=== PATIENT | female | born 1970 | race Caucasian/White ===

== ENCOUNTER 2018-02-13 00:55 | Emergency (ER) | payer OTHER, SELFPAY ==
[2018-02-13 00:56] VITALS: BP 112/70; PULSE 82; RESP 12; TEMP 36.7; O2SAT 100; BMI 24.5
--- NOTE | 2018-02-13 01:15 | EKG12_ITS ---
Test Reason : REPEAT EKG Blood Pressure : / mmHG Vent. Rate : 072 BPM Atrial Rate : 072 BPM P-R Int : 144 ms QRS Dur : 084 ms QT Int : 418 ms P-R-T Axes : 063 044 033 degrees QTc Int : 457 ms Normal sinus rhythm Normal ECG Confirmed by TOMY RODARTE, TOMY ([id number]), newspaper or periodical editor ZACH OCHOA ([id number]) on 02/14/2018 2:50:50 PM Referred By: DR CHAVIRA Confirmed By:TOMY HUITRON MD
--- NOTE | 2018-02-13 01:15 | RAD_ITS ---
STUDY: X-RAY CHEST REASON FOR EXAM: Female, 47 years old. Chest heaviness TECHNIQUE: PA and lateral views of the chest. COMPARISON: 10/30/2015 FINDINGS: The lungs are clear and expanded. There is no demonstrated pleural abnormality. Normal size heart. Normal mediastinum and dwain. Normal visualized pulmonary arteries. Normal visualized aortic arch and descending thoracic aorta. Normal visualized thoracic spine. Normal visualized ribs, clavicles, and shoulders. There is no demonstrated abnormality of the visualized soft tissue structures of the upper abdomen. RAD/Chest PA and Lateral IMPRESSION: Normal x-ray examination of the chest. Electronically Signed: Viktor Matias MD at 2:30 EDT Tel , Service support ,
[2018-02-13 01:24] VITALS: O2SAT 100
[2018-02-13] MEDS: Aspirin 81 MG TAB.CHEW 324 MG PO (01:24)
[2018-02-13 01:55] LABS: Absolute Lymphocyte Count 2.78 X10^3/ul (0.83-4.51); Absolute Neutrophil Count 6.1 X10^3/uL (2.0-7.7); Basophil# 0.02 X10^3/uL; Basophil% 0.2 % (0-1); Hematocrit 40.5 % (37-47); Hemoglobin 13.1 g/dl (12.0-15.0); Lymphocyte # 2.78 X10^3/ul (4.0); Lymphocyte % 27.6 % (19-41); Mean Corp Hgb Conc 32.3 g/gl (32-36); Mean Corpuscular Hgb 28.7 pg (27.0-32.0); Mean Corpuscular Volume 88.6 fL (81-99); Mean Platelet Vol. 9.2 fl (6.2-12.0); Monocyte# 0.97 X10^3/uL; Monocyte% 9.6 % (0-10); Neutrophil # 6.11 X10^3/uL (2.7-7.7); Neutrophil % 60.5 % (47-70); Platelet Count 245 K/mm3 (150-450); RBC Distribution Width CV 12.5 % (11.6-14.6); RBC Distribution Width SD 39.9 fl (35.1-43.9); Red Blood Count 4.57 M/mm3 (4.2-5.4); White Blood Count 10.1 K/mm3 (4.4-11.0)
--- NOTE | 2018-02-13 01:58 | ED.VISSUMM ---
- ER Visit Summary Date of Service: 02/13/18 Chief Complaint: Chest heaviness History of Present Illness: The patient is a 47 F who presents for chest heaviness for 3 hours. Onset was at rest. Patient had been jogging on the treadmill 5 hours prior to presentation, and stated she was unable to run as fast or as long as she normally does. Afterwards while at rest, she began having chest heaviness and shortness of breath. It is in the substernal and left chest region radiating into the neck and back. She is also had mild cough and belching. Pain is worse if supine or deep breath. She is also recently having lower abdominal pain. She has history of a leaky valve and mitral valve prolapse. Sibling and parents have heart disease, with the sibling having hole in his heart. Patient received a stress test that was normal and an echo last year that did not show any septal defect. No history of PE or DVT, cancer, smoking or oral contraceptive use. Patient is status post hysterectomy. She did recently have a car trip to the [facility]. No recent surgeries. Physical Examination: Vital signs: afebrile, hemodynamically stable, no hypoxia on room air General: well nourished, well developed, in no distress Skin: warm, dry, no rash, no pallor HEENT: normocephalic and atraumatic; PERRL, EOMI, moist mucous membranes Cardiovascular: regular rate and rhythm without murmurs, no peripheral edema, 2+ pulses all distal extremities Respiratory: No increased work of breathing, lungs are clear to auscultation bilaterally, no rales, rhonchi or wheezing Abdominal: Abdomen is soft, nontender with normoactive bowel sounds, no guarding or rebound, no masses MSK: Moves all extremities, no deformities, normal strength, tender spot on the plantar surface of the left foot (evaluated with US at [facility] today) Neuro: Awake and alert, oriented ?4. No facial droop, sensation and motor function intact and symmetric Test Results: Abnormal Lab Results 02/13/18 02/13/18 02/13/18 01:20 01:20 01:20 WBC 10.1 RBC 4.57 Hgb 13.1 Hct 40.5 MCV 88.6 MCH 28.7 MCHC 32.3 RDW 12.5 RDW Differential 39.9 Plt Count 245 MPV 9.2 Immature Gran % (Auto) 0.100 Neut % (Auto) 60.5 Lymph % (Auto) 27.6 Cassia % (Auto) 9.6 Eos % (Auto) 2.0 Baso % (Auto) 0.2 Absolute Neuts (auto) 6.1 Absolute Lymphs (auto) 2.78 Total Counted Not Reportable PT Cancelled INR Cancelled APTT Cancelled D-Dimer Quant (PE/DVT) Sodium 138 Potassium 3.4 L Chloride 105 Carbon Dioxide 27.0 Anion Gap 6 BUN 19 H Creatinine 0.84 Estim Creat Clear Calc 72.90 Est GFR (MDRD) Af Amer 92 Est GFR (MDRD) Non-Af 76 BUN/Creatinine Ratio 22.6 H Glucose 90 Calcium 9.3 Troponin I < 0.015 02/13/18 02/13/18 02/13/18 02:05 02:05 04:18 WBC RBC Hgb Hct MCV MCH MCHC RDW RDW Differential Plt Count MPV Immature Gran % (Auto) Neut % (Auto) Lymph % (Auto) Cassia % (Auto) Eos % (Auto) Baso % (Auto) Absolute Neuts (auto) Absolute Lymphs (auto) Total Counted PT 14.3 INR 1.1 APTT 28.1 D-Dimer Quant (PE/DVT) < 0.27 L Sodium Potassium Chloride Carbon Dioxide Anion Gap BUN Creatinine Estim Creat Clear Calc Est GFR (MDRD) Af Amer Est GFR (MDRD) Non-Af BUN/Creatinine Ratio Glucose Calcium Troponin I < 0.015 Clinical Impression(s) from Imaging Studies Chest X-Ray 02/13/18 01:15 IMPRESSION: Normal x-ray examination of the chest. Electronically Signed: Viktor Matias MD at 2:30 EDT Tel , Service support , Emergency Department Course and Treatment: Patient presents with chest heaviness and shortness of breath for 3 hours to presentation. She has no personal risk factors, however does have family history of acute coronary syndrome at age less than 55. Patient was given aspirin. She was given 1 nitro, but had a severe headache with no improvement in her pain and thus did not want any more. EKG showed a sinus rhythm without any ischemic changes. Initial troponin negative. Given a pleuritic component to patient's chest pain and her recent car ride from [place], d-dimer was checked to evaluate for any possibility of PE. It was negative. Labs were remarkable for mild dehydration. She received 1 L of fluids for IV hydration. No leukocytosis or anemia. Patient was given a dose of morphine for continued chest discomfort. She had improvement but again continued to have some chest pain. She was then given a GI cocktail. After this her pain had basically resolved, but was only present with a deep breath. Patient has a heart score of 3, which puts her at low risk of 30 day MACE. She was amenable to a 3 hour repeat EKG and troponin. At 3 hours EKG still was normal sinus rhythm without ischemic changes, unchanged from the initial one. Troponin was negative. Patient was only having chest pain with deep breath, and did not wish any further workup or pain medication. She will use her anti-inflammatories at home as needed for further pain. She stated she will call her primary care doctor today to arrange a follow-up appointment. Return precautions given. Patient was discharged home in improved condition. Treatment Plan: [] Disposition: [] Impression: Acute chest pain This note was generated with [employer]if[employer] dictation software. It may contain incorrect words, spelling, and punctuation that were not noted in review of the chart prior to signing ED Disposition - Plan for ED Patient: Chief Complaint: Chest Pain Referrals: Yaakov Tao DO [Primary Care Provider] -
[2018-02-13 02:00] LABS: POSITIVE COUNT NO; POSITIVE DIFFERENTIAL NO; POSITIVE MORPHOLOGY NO
--- NOTE | 2018-02-13 02:01 | ED.DCSUM_ITS ---
- ER Visit Summary Date of Service: 02/13/18 Chief Complaint: Chest heaviness History of Present Illness: The patient is a 47 F who presents for chest heaviness for 3 hours. Onset was at rest. Patient had been jogging on the treadmill 5 hours prior to presentation, and stated she was unable to run as fast or as long as she normally does. Afterwards while at rest, she began having chest heaviness and shortness of breath. It is in the substernal and left chest region radiating into the neck and back. She is also had mild cough and belching. Pain is worse if supine or deep breath. She is also recently having lower abdominal pain. She has history of a leaky valve and mitral valve prolapse. Sibling and parents have heart disease, with the sibling having hole in his heart. Patient received a stress test that was normal and an echo last year that did not show any septal defect. No history of PE or DVT , cancer, smoking or oral contraceptive use. Patient is status post hysterectomy. She did recently have a car trip to the [facility]. No recent surgeries. Physical Examination: Vital signs: afebrile, hemodynamically stable, no hypoxia on room air General: well nourished, well developed, in no distress Skin: warm, dry, no rash, no pallor HEENT: normocephalic and atraumatic; PERRL, EOMI, moist mucous membranes Cardiovascular: regular rate and rhythm without murmurs, no peripheral edema, 2 + pulses all distal extremities Respiratory: No increased work of breathing, lungs are clear to auscultation bilaterally, no rales, rhonchi or wheezing Abdominal: Abdomen is soft, nontender with normoactive bowel sounds, no guarding or rebound, no masses MSK: Moves all extremities, no deformities, normal strength, tender spot on the plantar surface of the left foot (evaluated with US at [facility] today) Neuro: Awake and alert, oriented ?4. No facial droop, sensation and motor function intact and symmetric Test Results: Abnormal Lab Results 02/13/18 02/13/18 02/13/18 01:20 01:20 01:20 WBC 10.1 RBC 4.57 Hgb 13.1 Hct 40.5 MCV 88.6 MCH 28.7 MCHC 32.3 RDW 12.5 RDW Differential 39.9 Plt Count 245 MPV 9.2 Immature Gran % (Auto) 0.100 Neut % (Auto) 60.5 Lymph % (Auto) 27.6 Rabun % (Auto) 9.6 Eos % (Auto) 2.0 Baso % (Auto) 0.2 Absolute Neuts (auto) 6.1 Absolute Lymphs (auto) 2.78 Total Counted Not Reportable PT Cancelled INR Cancelled APTT Cancelled D-Dimer Quant (PE/DVT) Sodium 138 Potassium 3.4 L Chloride 105 Carbon Dioxide 27.0 Anion Gap 6 BUN 19 H Creatinine 0.84 Estim Creat Clear Calc 72.90 Est GFR (MDRD) Af Amer 92 Est GFR (MDRD) Non-Af 76 BUN/Creatinine Ratio 22.6 H Glucose 90 Calcium 9.3 Troponin I < 0.015 02/13/18 02/13/18 02/13/18 02:05 02:05 04:18 WBC RBC Hgb Hct MCV MCH MCHC RDW RDW Differential Plt Count MPV Immature Gran % (Auto) Neut % (Auto) Lymph % (Auto) Rabun % (Auto) Eos % (Auto) Baso % (Auto) Absolute Neuts (auto) Absolute Lymphs (auto) Total Counted PT 14.3 INR 1.1 APTT 28.1 D-Dimer Quant (PE/DVT) < 0.27 L Sodium Potassium Chloride Carbon Dioxide Anion Gap BUN Creatinine Estim Creat Clear Calc Est GFR (MDRD) Af Amer Est GFR (MDRD) Non-Af BUN/Creatinine Ratio Glucose Calcium Troponin I < 0.015 Clinical Impression(s) from Imaging Studies Chest X-Ray 02/13/18 01:15 IMPRESSION: Normal x-ray examination of the chest. Electronically Signed: Viktor Matias MD at 2:30 EDT Tel , Service support , Emergency Department Course and Treatment: Patient presents with chest heaviness and shortness of breath for 3 hours to presentation. She has no personal risk factors, however does have family history of acute coronary syndrome at age less than 55. Patient was given aspirin. She was given 1 nitro , but had a severe headache with no improvement in her pain and thus did not want any more. EKG showed a sinus rhythm without any ischemic changes. Initial troponin negative. Given a pleuritic component to patient's chest pain and her recent car ride from [place], d-dimer was checked to evaluate for any possibility of PE. It was negative. Labs were remarkable for mild dehydration. She received 1 L of fluids for IV hydration. No leukocytosis or anemia. Patient was given a dose of morphine for continued chest discomfort. She had improvement but again continued to have some chest pain. She was then given a GI cocktail. After this her pain had basically resolved, but was only present with a deep breath. Patient has a heart score of 3, which puts her at low risk of 30 day MACE. She was amenable to a 3 hour repeat EKG and troponin. At 3 hours EKG still was normal sinus rhythm without ischemic changes, unchanged from the initial one. Troponin was negative. Patient was only having chest pain with deep breath, and did not wish any further workup or pain medication. She will use her anti-inflammatories at home as needed for further pain. She stated she will call her primary care doctor today to arrange a follow-up appointment. Return precautions given. Patient was discharged home in improved condition. Treatment Plan: [] Disposition: [] Impression: Acute chest pain This note was generated with Urbasolar dictation software. It may contain incorrect words, spelling, and punctuation that were not noted in review of the chart prior to signing ED Disposition - Plan for ED Patient: Chief Complaint: Chest Pain Referrals: Yaakov Tao DO [Primary Care Provider] -
[2018-02-13 02:02] LABS: Anion Gap 6 (5-15); BUN 19 mg/dL (7-18); BUN/Creat Ratio 22.6 RATIO (10-20); Calcium,Total 9.3 mg/dL (8.5-10.1); Chloride 105 mmol/L (98-107); Creatinine, Serum 0.84 mg/dL (0.55-1.02); EST Glomerular Filtration Rate 76 mL/min (>60); Est Glom Filt Rate - Afr Amer 92 mL/min (>60); Glucose 90 mg/dL (74-106); Potassium 3.4 mmol/L (3.5-5.1); Sodium Level 138 mmol/L (136-145)
[2018-02-13 02:15] LABS: International Normalized Ratio 1.1; Partial Thromboplast Time 28.1 Seconds (24.1-36.2); Prothrombin Time (Protime)PT. 14.3 SECONDS (11.7-14.9)
[2018-02-13 02:21] VITALS: BP 110/64; PULSE 81; RESP 18; O2SAT 99
[2018-02-13] MEDS: 0.9% Normal Saline 1,000 ML 999 ML IV (02:27)
[2018-02-13 02:35] VITALS: BP 116/72; PULSE 73
[2018-02-13] MEDS: Morphine 4 MG/ML Syringe IV (03:05)
[2018-02-13 03:17] LABS: D-Dimer Quantitative (DVT/PE) < 0.27 FEU/ug/m (0.27-0.49)
--- NOTE | 2018-02-13 04:00 | EKG12_ITS ---
Test Reason : CP Blood Pressure : / mmHG Vent. Rate : 075 BPM Atrial Rate : 075 BPM P-R Int : 138 ms QRS Dur : 086 ms QT Int : 398 ms P-R-T Axes : 055 057 049 degrees QTc Int : 444 ms Normal sinus rhythm Normal ECG Confirmed by TOMY RODARTE, TOMY ([id number]), publication editor ZACH OCHOA ([id number]) on 02/14/2018 2:51:08 PM Referred By: DR CHAVIRA Confirmed By:TOMY HUITRON MD
[2018-02-13 04:01] VITALS: BP 108/75; PULSE 76; RESP 15; O2SAT 100
--- NOTE | 2018-02-13 04:58 | ED.DEP ---
ED Disposition - Plan for ED Patient: Disposition: Home or Assisted Living Chief Complaint: Chest Pain Instructions: ED Chest Pain Atypical Unkn Cause Referrals: Yaakov Tao DO [Primary Care Provider] - As soon as possible Additional Instructions: If you have any worsening of your condition or any new concerning symptoms, please return immediately to the emergency department for another evaluation.
[2018-02-13 05:08] VITALS: PULSE 87; RESP 16; O2SAT 97; O2SAT 98
== END 2018-02-13 05:09 | disposition home or self-care (01) ==
PROVIDERS: Emergency Provider Emergency Medicine; Family Provider Student in an Organized Health Care Education/Training Program; PCP Student in an Organized Health Care Education/Training Program
DX: R07.9 Chest pain, unspecified (principal); I34.1 Nonrheumatic mitral (valve) prolapse; I38 Endocarditis, valve unspecified; Z79.82 Long term (current) use of aspirin; Z79.899 Other long term (current) drug therapy; Z82.49 Family history of ischemic heart disease and other diseases of the circulatory system
CPT/HCPCS: 36415; 71046; 80048; 84484; 85025; 85379; 85610; 85730; 93005; 96361; 96374; 99285; J7030; A4216

== ENCOUNTER → 2022-09-10 | Outpatient (CLI) | payer BC, SELFPAY | END | disposition home or self-care (01) | PROVIDERS: PCP Student in an Organized Health Care Education/Training Program; Referring Provider Surgery; Visit Provider Surgery | DX: R92.0 Mammographic microcalcification found on diagnostic imaging of breast (principal) | CPT/HCPCS: 19081 ==

== ENCOUNTER 2023-07-19 20:26 | Emergency (ER) | payer BC, SELFPAY ==
[2023-07-19 20:27] VITALS: BP 114/69; PULSE 88; RESP 17; TEMP 36.6; O2SAT 99; BMI 22.9
--- NOTE | 2023-07-19 20:46 | EX.ED.GENINJ ---
HPI History of Present Illness Chief Complaint: Fall Detail of Chief Complaint: Back pain and left hip pain status post fall Onset/Context/Timing Onset: Hours (Less than 1 hour prior to presentation) Mechanism/Context: Blunt Injury and Fall Location: Lower back and left hip region Current Severity: Moderate Maximum Severity: Severe Worsened by: Any attempt to move Relieved by: Nothing Associated Symptoms Associated Symptoms: Negative for Parasthesias, Weakness, Loss of function, Inability to ambulate or Loss of consciousness Narrative Narrative: Is a 53-year-old woman with stage 0 breast cancer on tamoxifen and medicine for migraine headaches who presents with low back pain and left hip pain after fall. She fell down 3 steps in the garage. They are made out of composite wood. She presents because she has significant pain. She has increased pain with weightbearing. She is able to bear weight. She denies head trauma. She denies neck pain. She denies paresthesia, anesthesia or motor weakness. She is not allergic to anything. Tetanus Immunization: 5-10 years Prior similar symptoms: No Recent Illness/Hospitalization: [facility] Medical History (Updated 07/19/23 @ 21:[address] Jeet Sandhu MD) Breast cancer Home Medications aspirin 81 mg chewable tablet 81 mg PO DAILY@0800 10/30/15 [History Last Taken Unknown] nifedipine 30 mg tablet,extended release 24 hr 30 mg PO DAILY 10/30/15 [History Last Taken Unknown] biotin 1,000 mcg chewable tablet 1,000 mcg PO DAILY 02/13/18 [History Last Taken Unknown] coenzyme Q10 200 mg capsule (Co Q-10) 400 mg PO DAILY 02/13/18 [History Last Taken Unknown] magnesium oxide 400 mg PO DAILY 02/13/18 [History Last Taken Unknown] hydrocodone-acetaminophen 5-325mg 5mg-325mg 1 tab PO Q6H PRN PRN Pain 3 days #10 TABLETS 07/19/23 [Rx Last Taken Unknown] naproxen 500 mg tablet 500 mg PO BID #14 tabs 07/19/23 [Rx Last Taken Unknown] Allergy/AdvReac Type Severity Reaction Status Date / Time No Known Allergies Allergy Verified 07/19/23 20:27 Social History (Updated 07/19/23 @ 20:[address] Jeet Sandhu MD) household members: spouse Smoking Status: Never smoker substance use type: does not use ROS ROS ED Constitutional Constitutional ED: Denies chills, fever(s), subjective, sweats or weight loss Eyes Eyes: Denies blurry vision or change in vision ENT ENT ED: Denies ear pain or rhinorrhea Cardiovascular Cardiovascular: Denies chest pain Respiratory/Chest Respiratory/Chest: Denies dyspnea or dyspnea on exertion Gastrointestinal Gastrointestinal: Denies abdominal pain, nausea or vomiting Musculoskeletal Musculoskeletal: Reports back pain; Denies arthralgias, myalgias or neck pain Integumentary Denies rash Neurologic Neurologic: Denies headache(s), paresthesias or weakness Hematologic/Lymphatic Hematologic/Lymphatic: Denies easy bleeding or easy bruising EXAM Physical Exam Const Vital Signs: 07/19/23 20:27 07/19/23 21:32 Temperature 97.8 F Temperature Source Temporal Pulse Rate 88 Respiratory Rate 17 Respiratory Effort Normal Non-Labored Short of Breath Respiratory Depth Normal Respiratory Pattern Normal Blood Pressure 114/69 Blood Pressure Mean 84 Pulse Ox 99 Oxygen Delivery Method Room Air Room Air Positive well nourished and well developed Constitutional Narrative: Patient is in obvious discomfort. She is sitting straight up on the chair. General Appearance ED: well developed; Negative for NAD HEENT atraumatic; Negative for tenderness Nose: Negative for septum abnormal Eyes PERRL and EOMs intact bilaterally Neck full ROM General: Negative for tenderness Chest Wall palpation of chest normal Resp normal respiratory effort and clear to auscultation bilaterally Cardio regular rhythm, S1 normal heart sound, S2 normal heart sound and no murmurs GI normal to inspection, nondistended, normoactive bowel sounds, non-tender, non-distended and no masses Back/Spine Negative for no thoracic nor lumbar tenderness Back/Spine Narrative: Pain palpation over the lumbar vertebrae and left paralumbar region. There is no pain the patient over the iliac wing. There is pain to palpation over the left ischial tuberosity. There is pain in the area of the left greater trochanteric process. General Back: Negative for CVA tenderness Thoracic Spine / Upper Back: Negative for thoracic spinal tenderness Extremity normal to inspection and full ROM General Extremety ED: Negative for deformity or edema General Extremity: Negative for deformity or edema Neuro oriented x3, CN's II-XII intact bilaterally, no focal motor deficits and no sensory deficits noted Neuro Narrative: EHL is intact. DP and PT pulse are palpable. Straight leg test in the sitting position is negative. Sensorium / Orientation: alert Psych mental status grossly normal and thought process normal Skin no rashes or lesions noted, no wounds, skin turgor normal and no jaundice MDM MDM MDM Narrative Medical decision making narrative: IV was established to treat patient's pain with morphine. X-ray of the LS-spine was obtained to assess for contusion versus fracture and specifically compression fracture. Because of her left hip pain 3 views were obtained to assess her pelvis as well as the left proximal femur. History & Record Review Additional record(s) reviewed:: Prior outpatient record and Prior ED visit Radiography Chest X-Ray - ED: 2 View (X-ray of the LS-spine reveals no evidence of fracture, subluxation dislocation, spondylolisthesis or spondylolithiasis. There is independently reviewed interpreted by me at [id number].) and Read by ED Physician (X-ray of the left elbow and hip were obtained. There is no evidence of fracture, subluxation or dislocation. There is no anterior posterior fat pad noted on the elbow film. This was independent reviewed interpreted by me at 2145.) Diagnostic Testing: Clinical Impression(s) from Imaging Studies Elbow X-Ray 07/19/23 21:30 IMPRESSION: Normal x-ray examination of the elbow. Electronically Signed: Abelardo Valdivia MD at 22:10 EST Reading Location [facility] and [facility] Tel , Service support , Hip/Pelvis X-Ray 07/19/23 21:30 IMPRESSION: Normal x-ray examination of the pelvis and hip. Electronically Signed: Abelardo Valdivia MD at 22:10 EST Reading Location ID and State: [facility] / [place] Tel , Service support , Lumbar Spine X-Ray 07/19/23 21:30 IMPRESSION: Transitional vertebrae as above. Mild scoliosis. Electronically Signed: Abelardo Valdivia MD at 22:09 EST Reading Location ID and State: [facility] / [place] Tel , Service support , Treatment and Re-Evaluation Narrative: Patient was informed of her x-ray results. Her pain was reassessed. States she has had little improvement with respect to pain management. Additional dose of morphine was ordered. Patient was reassessed at 2210. She was still having significant pain. 2.5 mg of Valium was ordered. Reassessed at 2255. Patient states she like to go home. She will be discharged to home. Discharge Plan Triage Chief Complaint: Fall ED Provider: Jeet Sandhu Dx/Rx/DC Orders Clinical Impression: Injury due to fall, Contusion of lower back, Contusion of left hip, initial encounter, Contusion of elbow, left Instructions: ED Contusion, Elbow, ED Back Contusion, ED Hip Contusion Prescriptions: New hydrocodone-acetaminophen [hydrocodone-acetaminophen] 5-325 mg tablet 1 tab PO Q6H PRN PRN (Reason: Pain) 3 Days Qty: 10 0RF naproxen 500 mg tablet 500 mg PO BID Qty: 14 0RF No Action nifedipine 30 MG tablet 30 mg PO DAILY aspirin 81 MG tablet,chewable 81 mg PO DAILY@0800 coenzyme Q10 [Co Q-10] 200 MG capsule 400 mg PO DAILY biotin 1,000 MCG tablet,chewable 1,000 mcg PO DAILY magnesium oxide 400 MG tablet 400 mg PO DAILY Primary Care Provider: Yaakov Tao Referrals: Yaakov Tao DO [Primary Care Provider] - Disposition Disposition: Home, Self Care
[2023-07-19] MEDS: Morphine 4 MG/ML Syringe IV ×2 (21:16→22:00)
[2023-07-19] MEDS: Ondansetron 4 MG/2 ML Vial IV (21:16)
--- NOTE | 2023-07-19 21:30 | RAD_ITS ---
STUDY: X-RAY - LEFT ELBOW REASON FOR EXAM: Female, 53 years old. fall TECHNIQUE: 3 view(s) of the elbow. COMPARISON: None. FINDINGS: Normal visualized humerus, radius and ulna. Normal radiocapitellar and ulnotrochlear articulations. The soft tissue structures are unremarkable. RAD/Elbow min 3 Views IMPRESSION: Normal x-ray examination of the elbow. Electronically Signed: Abelardo Valdivia MD at 22:10 EST ,
--- NOTE | 2023-07-19 21:30 | RAD_ITS ---
STUDY: X-RAY - LUMBAR SPINE REASON FOR EXAM: Female, 53 years old. Injury/Pain TECHNIQUE: 2 view(s) of the lumbar spine were obtained. COMPARISON: None FINDINGS: Normal lumbar lordosis. Mild levoconvex scoliosis. 4 lumbar type vertebral bodies with probable sacralization of L5. There is a normal alignment of the vertebrae. Normal vertebral bodies and endplates. Normal disc space heights. The soft tissue structures are unremarkable. RAD/Lumbar Spine 2 or 3 Views IMPRESSION: Transitional vertebrae as above. Mild scoliosis. Electronically Signed: Abelardo Valdivia MD at 22:09 EST ,
--- NOTE | 2023-07-19 21:30 | RAD_ITS ---
STUDY: X-RAY - PELVIS AND LEFT HIP REASON FOR EXAM: Female, 53 years old. Injury/Pain TECHNIQUE: 3 views of the pelvis and hip. COMPARISON: None. FINDINGS: There is a non-specific bowel gas pattern. Normal visualized soft tissue structures. Normal bilateral iliac wings, sacroiliac joints and visualized sacrum. Normal bilateral superior and inferior pubic rami. Normal pubic symphysis. Normal bilateral ischial tuberosities. Normal visualized femoral head. Normal acetabulum. Normal hip joint. RAD/HIP, UNI W/ Pelvis 2-3 Views IMPRESSION: Normal x-ray examination of the pelvis and hip. Electronically Signed: Abelardo Valdivia MD at 22:10 [facility] ,
[2023-07-19] MEDS: diazePAM 5 MG Tablet 2.5 MG PO (22:54)
[2023-07-19 23:04] VITALS: RESP 20
== END 2023-07-19 23:07 | disposition home or self-care (01) ==
PROVIDERS: Emergency Provider Emergency Medicine; PCP Student in an Organized Health Care Education/Training Program; Visit Provider Emergency Medicine
DX: S20.229A Contusion of unspecified back wall of thorax, initial encounter (principal); C50.919 Malignant neoplasm of unspecified site of unspecified female breast; S70.02XA Contusion of left hip, initial encounter; S50.02XA Contusion of left elbow, initial encounter; W10.9XXA Fall (on) (from) unspecified stairs and steps, initial encounter
CPT/HCPCS: 72100; 73080; 73502; 96374; 96375; 96376; 99282; A4216; J2405

== ENCOUNTER 2023-07-21 12:06 | Emergency (ER) | payer BC, SELFPAY ==
[2023-07-21 12:06] VITALS: BP 121/73; PULSE 73; RESP 16; TEMP 36.2; O2SAT 100; BMI 23.7
--- NOTE | 2023-07-21 13:00 | ED.VIS.BACK ---
HPI History of Present Illness Chief Complaint: Back Informant: patient Onset/Context/Timing Onset: Days Context: Sudden Onset Injury: direct trauma and fall Timing: Continuous Quality: Sharp, Burning and Throbbing Location: Lumbar and Left Leg Current Severity: Moderate Maximum Severity: Moderate Worsened by: improves with Movement, Bending and Lifting Relieved by: Remaining Still Associated Symptoms Associated Symptoms: Numbness, Tingling and Radiation to Left Leg; Negative for Fever, Abdominal Pain, Dysuria, Unable to Ambulate, Unable to Transfer, Urinary Retention, Urinary Incontinence or Fecal Incontinence Narrative Narrative: 53-year-old female fell a week or so ago. Landing on her buttocks going down steps. Since that time has had back pain and now pain radiating to her left leg with some numbness. She was seen initially had lumbar spine, pelvis and elbow x-rays all of which were negative. She was placed on oxycodone and Naprosyn for pain. Pain is not being controlled and she is concerned that she may have injured a disc in her back. She has never had any back history of prior back surgery. Prior similar symptoms: No Recent Illness/Hospitalization: No [facility] Medical History Breast cancer Home Medications aspirin 81 mg chewable tablet 81 mg PO DAILY@0800 10/30/15 [History Last Taken Unknown] nifedipine 30 mg tablet,extended release 24 hr 30 mg PO DAILY 10/30/15 [History Last Taken Unknown] biotin 1,000 mcg chewable tablet 1,000 mcg PO DAILY 02/13/18 [History Last Taken Unknown] coenzyme Q10 200 mg capsule (Co Q-10) 400 mg PO DAILY 02/13/18 [History Last Taken Unknown] magnesium oxide 400 mg PO DAILY 02/13/18 [History Last Taken Unknown] hydrocodone-acetaminophen 5-325mg 5mg-325mg 1 tab PO Q6H PRN PRN Pain 3 days #10 TABLETS 07/19/23 [Rx Last Taken Unknown] naproxen 500 mg tablet 500 mg PO BID #14 tabs 07/19/23 [Rx Last Taken Unknown] oxycodone-acetaminophen 5 mg-325 mg tablet (Percocet) 1 tab PO Q4H PRN pain 5 days #20 tabs 07/21/23 [Rx Last Taken Unknown] prednisone 20 mg tablet 40 mg (2 x 20 mg) PO DAILY 7 days #14 tabs 07/21/23 [Rx Last Taken Unknown] tamoxifen 20 mg tablet 20 mg PO DAILY 07/21/23 [History Last Taken Unknown] Allergy/AdvReac Type Severity Reaction Status Date / Time No Known Allergies Allergy Verified 07/19/23 20:27 Family History Father Heart disease Mother Emphysema lung Dementia Surgical History H/O foot surgery H/O lumpectomy H/O: hysterectomy Social History household members: spouse Smoking Status: Never smoker substance use type: does not use ROS ROS ED ROS Narrative Pain. No recent illness. Review of Systems ROS Unobtainable: Denies due to encephalopathy Constitutional Constitutional ED: Denies chills or fever(s) Eyes Eyes: Denies blurry vision Cardiovascular Cardiovascular: Denies chest pain Respiratory/Chest Respiratory/Chest: Denies dyspnea Gastrointestinal Gastrointestinal: Denies abdominal pain Genitourinary Genitourinary ED: Denies dysuria or hematuria Musculoskeletal Musculoskeletal: Denies arthralgias Integumentary Denies abscess or Abrasions Neurologic Neurologic: Denies headache(s) Psychiatric Psychiatric: Denies anxiety or depression Endocrine Endocrinology: Denies cold intolerance Hematologic/Lymphatic Hematologic/Lymphatic: Denies easy bleeding or easy bruising Allergic/Immunologic Allergic/Immunologic ED: Denies mouth swelling or tongue swelling EXAM Physical Exam Narrative Exam Narrative: 53-year-old female no acute distress. Sitting upright in bed. Vital signs stable afebrile. HEENT exam unremarkable. Neck nontender. Lungs clear to auscultation bilaterally. Heart regular rhythm no murmur. Chest wall and ribs nontender. Abdomen soft nontender. Back lower lumbar and left SI tenderness. No ecchymosis or bruising. No signs of trauma. Pelvic girdle intact. Moving all 4 extremities. Positive straight leg raise on the left negative on the right. Normal medial thigh sensation. Left lower leg decreased sensation medially subjectively. Dorsi and plantarflexion intact. Flexion extension of both hips and knees unremarkable. Neurologic exam normal strength. Decreased sensation medially. Cauda equina. Const Vital Signs: 07/21/23 12:06 Temperature 97.2 F L Temperature Source Temporal Pulse Rate 73 Respiratory Rate 16 Blood Pressure 121/73 H Blood Pressure Mean 89 Pulse Ox 100 Positive well nourished and well developed; Negative for obese, cachectic, contractures or unkempt General Appearance ED: well developed and NAD; Negative for unkempt, cachectic, contractures or pallor Nutritional Appearance: Negative for cachectic or obese HEENT Reports moist mucous membranes; Denies dry mucous membranes Negative for trauma or tenderness Mouth ED: No dry mucous membranes Mouth: No dry mucous membranes Eyes PERRL and EOMs intact bilaterally General Eye ED: Negative for pale conjunctiva or scleral icterus Neck no lymphadenopathy, supple and no JVD General: Negative for tenderness Thyroid: Negative for other Chest Wall Chest: Negative for other Resp normal respiratory effort and clear to auscultation bilaterally Effort and Inspection: Negative for pain with movement Auscultation: Negative for rales, rhonchi or wheezes Cardio regular rate, regular rhythm, S1 normal heart sound, S2 normal heart sound and no murmurs Palpation: Negative for palpable S3 Rate: Negative for bradycardia or tachycardic Rhythm: Negative for abnormal rhythm Bruits: Negative for other GI normal to inspection, nondistended, normoactive bowel sounds, soft to palpation, non-tender, non-distended and no masses Inspection: Negative for abdominal distention Auscultation: Negative for hyperactive bowel sounds Palpation: Negative for tender, guarding or hepatomegaly Bladder / Kidney Exam: No other Back/Spine normal to inspection; Negative for no thoracic nor lumbar tenderness Back/Spine Narrative: Mildly tender lumbar spine. Left SI tenderness. Positive straight leg raise on the left. General Back: Negative for CVA tenderness Cervical Spine: Negative for cervical spine tenderness Thoracic Spine / Upper Back: Negative for paraspinal muscle tenderness Lumbar Spine / Lower Back: ROM limited and straight leg raise positive - left Extremity no clubbing, cyanosis or edema; Negative for normal to inspection Extremity Narrative: Medial lower leg decreased sensation. Normal range of motion. General Extremety ED: Negative for edema or tenderness General Extremity: Negative for edema Neuro oriented x3 and No no sensory deficits noted Sensorium / Orientation: alert; Negative for confused, lethargic or stuporous Motor Exam: strength 5/5 throughout Psych mental status grossly normal Appearance: Negative for unkempt Attitude: No agitated and No other Mood & Affect: Negative for depressed Skin no rashes or lesions noted and no wounds General Skin Exam: Negative for jaundice or pallor Lesions: No lesion noted Rashes: No rashes noted Trauma: Negative for abrasion or puncture Wounds: Negative for wounds noted MDM MDM MDM Narrative Medical decision making narrative: 53-year-old recent fall negative x-rays of her lumbar spine and pelvis. She may have disc inflammation and or compression of the nerve on her left leg. Patient and her understand that I am unable to get MRI today. She will be placed on prednisone 40 mg a day for 1 week. First dose given here. Percocet for pain. Stop the Naprosyn and follow-up with primary care physician and get outpatient MRI if not improving. History & Record Review Discussion w/independent historian: Patient and Family Additional record(s) reviewed:: Prior ED visit Discharge Plan Triage Chief Complaint: Back ED Provider: Flako Rodriguez Dx/Rx/DC Orders Clinical Impression: Sciatica of left side, Fall Instructions: ED Sciatica Prescriptions: New prednisone 20 mg tablet 40 mg PO DAILY 7 Days Qty: 14 0RF oxycodone-acetaminophen [Percocet] 5-325 mg tablet 1 tab PO Q4H PRN (Reason: pain) 5 Days Qty: 20 0RF No Action nifedipine 30 MG tablet 30 mg PO DAILY aspirin 81 MG tablet,chewable 81 mg PO DAILY@0800 coenzyme Q10 [Co Q-10] 200 MG capsule 400 mg PO DAILY biotin 1,000 MCG tablet,chewable 1,000 mcg PO DAILY magnesium oxide 400 MG tablet 400 mg PO DAILY hydrocodone-acetaminophen [hydrocodone-acetaminophen] 5-325 mg tablet 1 tab PO Q6H PRN PRN (Reason: Pain) 3 Days Qty: 10 0RF naproxen 500 mg tablet 500 mg PO BID Qty: 14 0RF tamoxifen 20 mg tablet 20 mg PO DAILY Primary Care Provider: Yaakov Tao Referrals: Yaakov Tao DO [Primary Care Provider] - As soon as possible Activity Restrictions/Additional Instructions: Back pain due to fall also concerning for possible lumbar disc injury or inflammation causing compression of the nerve going down your left leg which would be giving you the numbness and the pain going down your leg. Start on prednisone 40 mg a day for 1 week. No need to taper. Stop the Naprosyn that you are already on because prednisone is already an anti-inflammatory do not take both together. Continue your other pain medication and I also wrote you for Percocet as needed take either the oxycodone or the Percocet. Not both. Follow-up with your doctor to be set up for an outpatient MRI. MRI of your lumbar spine without contrast. Disposition Disposition: Home, Self Care
[2023-07-21] MEDS: predniSONE 20 MG Tablet 40 MG PO (13:07)
[2023-07-21 13:13] VITALS: RESP 14
[2023-07-21] MEDS: Ondansetron ODT 4 MG Tablet PO (13:22)
[2023-07-21] MEDS: HYDROmorphone 1 MG/ML Syringe IM (13:23)
== END 2023-07-21 13:35 | disposition home or self-care (01) ==
PROVIDERS: Emergency Provider Emergency Medicine; PCP Student in an Organized Health Care Education/Training Program; Visit Provider Emergency Medicine
DX: M54.32 Sciatica, left side (principal); W19.XXXA Unspecified fall, initial encounter
CPT/HCPCS: 96372; 99282

== ENCOUNTER 2024-05-01 07:19 | Emergency (ER) | payer BC, SELFPAY ==
[2024-05-01] VITALS (8 sets, daily range): BP systolic 62–133; BP diastolic 44–90; PULSE 76–90; RESP 12–19; TEMP 35.9–36.7; O2SAT 98–100; BMI 22.8
--- NOTE | 2024-05-01 07:30 | CT_ITS ---
INDICATION: syncope, head trauma EXAMINATION: CT BRAIN - CT Head or Brain W/O Contrast Injection TECHNIQUE: Multiple axial images were obtained of the head without intravenous contrast. A radiation dose optimization technique was used for this scan. IV Contrast dosage and agent: None. RADIATION DOSAGE (If Supplied By Facility): CTDIvol = ( 44.99 ) mGy, DLP = ( 779.24 ) mGycm COMPARISON: No relevant prior comparison study available FINDINGS: BRAIN PARENCHYMA: No intra- or extra-axial hemorrhage. No evidence of acute infarct. No intracranial mass or mass effect. There is preservation of the gay/white matter interface. Posterior fossa structures are unremarkable. No parenchymal abnormality. CSF SPACES: No cerebral volume loss. No hydrocephalus. Basal cisterns are patent. CALVARIUM, SKULL BASE, PARANASAL SINUSES AND MASTOID AIR CELLS: Partially opacified maxillary sinuses. The mastoid air cells and visualized paranasal sinuses are otherwise well aerated. The calvarium is intact. No discrete lytic or blastic abnormalities. ORBITS: Both globes, extraocular muscles, optic nerves and retrobulbar fat appear unremarkable. CT/Brain/Head without Contrast IMPRESSION: No acute intracranial finding. Electronically Signed: Wilner Isaacs MD at 8:15 EDT ,
--- NOTE | 2024-05-01 07:30 | CT_ITS ---
INDICATION: trauma, jaw pain EXAMINATION: CT SINUSES - CT Sinuses W/O Contrast Injection TECHNIQUE: Helically acquired images were obtained of the paranasal sinuses. The protocol utilizes one or more of the following dose reduction techniques: automated exposure control, adjustment of mA and/or kV according to patient size,and/or use of iterative reconstruction technique. IV Contrast dosage and agent: None RADIATION DOSAGE (If Supplied By Facility): CTDIvol = ( 29.38 ) mGy, DLP = ( 642.95 ) mGycm COMPARISON: No relevant prior comparison study available FINDINGS: FRONTAL SINUSES AND RECESSES: Clear. ETHMOID AIR CELLS: Clear. MAXILLARY SINUSES: Mild mucoperiosteal thickening bilaterally. OSTIOMEATAL COMPLEXES: Clear and normally formed. SPHENOID SINUSES: Clear. SPHENOETHMOIDAL RECESSES: Clear. ANCILLARY FINDINGS: NASAL TURBINATES: Unremarkable. NASAL SEPTUM: Midline. ORBITS: Unremarkable. VISUALIZED DENTITION: No periodontal osseous erosion. ANTERIOR CRANIAL FOSSA: Unremarkable. OSSEOUS STRUCTURES: No maxillofacial fracture. Degenerative changes are seen at the left temporomandibular joint. CT/Sinus/Facial Bone IMPRESSION: No acute maxillofacial fracture. 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 Electronically Signed: Wilner Isaacs MD at 8:19 EDT ,
--- NOTE | 2024-05-01 07:30 | EKG12_ITS ---
Test Reason : SYNCOPE Blood Pressure : / mmHG Vent. Rate : 073 BPM Atrial Rate : 073 BPM P-R Int : 140 ms QRS Dur : 074 ms QT Int : 400 ms P-R-T Axes : 061 043 038 degrees QTc Int : 440 ms Normal sinus rhythm Normal ECG Confirmed by DAMASO ROMERO ([id number]), videotape editor TIERNEY DOSS ([id number]) on 05/05/2024 8:28:13 AM Referred By: Confirmed By:DAMASO ROMERO
--- NOTE | 2024-05-01 07:35 | EX.ED.DYSGE1 ---
HPI History of Present Illness Chief Complaint: Syncope Informant: patient Narrative Narrative: Patient is a 53-year-old female with history of migraines, lumbar radiculopathy, anxiety and breast cancer (on tamoxifen) presenting after syncopal episode. Patient states the past few days she has had a worsening headache and feels that she has a sinus infection. She has had sore throat, congestion, nonproductive cough and headaches. She went to take her dogs out this morning and felt sweaty and dizzy. She describes the dizziness as a lightheadedness sensation and denies a sensation of vertigo or room spinning. She was in the kitchen and her sons witnessed her fall forward and hit her face on the counter/stove and then fall to the ground. She was unconscious for approximately 10 seconds. She in January her lower lip (her teeth went through her lower lip), chipped some teeth, has jaw pain and is also complaining of right ankle pain and swelling from the fall. Is not on any blood thinners but does take 81 mg aspirin daily. Denies any significant history of syncope. in the room states that she does have low blood pressure normally. Patient states she has been drinking plenty fluids. Denies any chest pain or difficulty breathing. No other complaints or concerns at this time. [facility] Medical History Breast cancer Home Medications ?Medication ?Instructions ?Recorded ?Last Taken ?Type aspirin 81 mg chewable tablet 81 mg PO DAILY@0800 10/30/15 Unknown History nifedipine 30 mg tablet,extended 30 mg PO DAILY 10/30/15 Unknown History release 24 hr biotin 1,000 mcg chewable tablet 1,000 mcg PO DAILY 02/13/18 Unknown History coenzyme Q10 200 mg capsule (Co 400 mg PO DAILY 02/13/18 Unknown History Q-10) magnesium oxide 400 mg PO DAILY 02/13/18 Unknown History naproxen 500 mg tablet 500 mg PO BID #14 tabs 07/19/23 Unknown Rx tamoxifen 20 mg tablet 20 mg PO DAILY 07/21/23 Unknown History chlorhexidine gluconate 0.12 % 15 ml buccal TID 5 days #118 mL 05/01/24 Unknown Rx mouthwash (Periogard) clindamycin HCl 150 mg capsule 300 mg (2 x 150 mg) PO Q8H 5 days 05/01/24 Unknown Rx #30 CAPSULES dextroamphetamine-amphetamine ER 25 mg PO DAILY 05/01/24 Unknown History 25 mg 24hr capsule,extend release (Adderall XR) gabapentin 100 mg capsule 100 mg PO DAILY 05/01/24 Unknown History metformin 500 mg tablet 500 mg PO BID 05/01/24 Unknown History nirmatrelvir 300 mg (150 mg See Rx Instructions PO .COMPLEX 05/01/24 Unknown Rx x2)-ritonavir 100 mg tablet,dose #30 tabs pack (Paxlovid) ondansetron 4 mg disintegrating 4 mg PO Q8H PRN PRN Nausea #10 tabs 05/01/24 Unknown Rx tablet oxycodone 5 mg tablet 5 mg PO Q6H PRN pain 3 days #12 05/01/24 Unknown Rx tabs topiramate 50 mg tablet 50 mg PO DAILY 05/01/24 Unknown History Allergy/AdvReac Type Severity Reaction Status Date / Time No Known Allergies Allergy Verified 05/01/24 07:21 Family History Father Heart disease Mother Emphysema lung Dementia Surgical History H/O: hysterectomy H/O foot surgery H/O lumpectomy Social History household members: spouse Smoking Status: Never smoker substance use type: does not use ROS ROS ED Constitutional Constitutional ED: Reports other Details: syncope ; Denies chills or fever(s) Eyes Eyes: Denies change in vision ENT ENT ED: Reports rhinorrhea, sore throat and other Details: congestion, sinus pressure Cardiovascular Cardiovascular: Denies chest pain Respiratory/Chest Respiratory/Chest: Reports cough; Denies dyspnea Gastrointestinal Gastrointestinal: Denies abdominal pain Musculoskeletal Musculoskeletal: Reports other Details: right ankle pain and swelling Integumentary Reports other Details: chin laceration Neurologic Neurologic: Reports headache(s); Denies paresthesias or weakness Hematologic/Lymphatic Hematologic/Lymphatic: Denies easy bleeding or easy bruising EXAM Physical Exam Const Vital Signs: 05/01/24 07:22 05/01/24 08:20 05/01/24 08:20 Temperature 96.6 F L Temperature Source Temporal Pulse Rate 88 81 83 Respiratory Rate 16 19 H 18 Blood Pressure 62/44 L 118/54 L 118/54 L Blood Pressure Mean 50 75 75 Pulse Ox 100 98 98 Oxygen Delivery Method Room Air Room Air 05/01/24 09:00 05/01/24 10:00 05/01/24 11:00 Temperature Temperature Source Pulse Rate 88 81 83 Respiratory Rate 19 H 19 H 17 Blood Pressure 102/90 H 121/77 H 133/73 H Blood Pressure Mean 94 91 93 Pulse Ox 98 98 98 Oxygen Delivery Method Room Air Room Air Room Air 05/01/24 11:58 05/01/24 11:59 05/01/24 13:00 Temperature 98.1 F Temperature Source Pulse Rate 77 76 90 Respiratory Rate 17 19 H 12 Blood Pressure 125/78 H 128/77 H 105/68 Blood Pressure Mean 93 94 80 Pulse Ox 98 98 98 Oxygen Delivery Method Room Air Positive well nourished and well developed General Appearance ED: well developed and NAD HEENT Reports TM's clear and moist mucous membranes HEENT Narrative: Normal tympanic membrane's bilaterally. No signs of basilar skull fracture. Abnormal occlusion, patient cannot bite down completely and feels that her teeth are not lining up. She has small chips to the ninth and 10th teeth consistent with Richards class I dental fracture. There is a through and through laceration through the lower lip buccal surface onto the chin. No involvement of the vermilion surface. There is also approximately 2 cm defect in the junction of the gums and the buccal surface of the lower lip with associated inferior labial frenulum laceration exposing the submandibular area. Negative for trauma Tympanic Membrane ED: Yes TM's clear Eyes PERRL Neck supple Neck Narrative: Painless range of motion of the neck, no step-off sign General: Negative for tenderness Chest Wall inspection of chest normal Resp normal respiratory effort and clear to auscultation bilaterally Cardio regular rate and regular rhythm GI normal to inspection, nondistended, normoactive bowel sounds Palpation: soft; Negative for tender or guarding Extremity Extremity Narrative: Normal range of motion of extremities. Localized soft tissue swelling and tenderness of the right lateral ankle. No joint effusion appreciated. Tenderness over the lateral malleolus. No tenderness over the fifth metatarsal head. No tenderness over the fibular head. Compartments are soft of the calf. Neuro oriented x3 Sensorium / Orientation: alert Motor Exam: general weakness Psych mental status grossly normal Skin Skin Narrative: 2 cm full-thickness laceration of the middle chin MDM MDM MDM Narrative Medical decision making narrative: Patient is evaluated after syncopal episode. She sustained facial trauma, has a through and through lip laceration also has bruising and pain to her right ankle. She reports 2 to 3 days of URI symptoms. Patient is hypotensive upon arrival. Differential includes asthma limited to hypovolemia, hemorrhagic shock, intracranial trauma, mandibular fracture, arrhythmia, COVID/viral infection, pneumonia, pulmonary emboli and ankle fracture/dislocation/sprain. Patient is she is ordered fentanyl but declines it. She is given IV fluids with improvement of her blood pressure. She remains hemodynamically stable now in the emergency room. Lab work shows a mildly elevated D-dimer of 0.59 but otherwise is normal with a normal high-sensitivity troponin of 4 and normal CBC. CMP shows a very mildly elevated creatinine of 1.14 but otherwise normal. Urinalysis is not consistent with infection. [id number] glucose is 99 (normal). CT of the brain and face as well as the neck does not show any acute fracture. CTA of the chest obtained which does not show any acute process such as pulmonary emboli, pneumonia or trauma. X-ray of the right ankle reviewed by myself as well as radiology shows distal fibular fracture. This is discussed with podiatry, Dr. Alonso, who recommends limited weightbearing is much as possible in a walking boot. He will follow-up with her outpatient. Patient is agreeable with this. No acute surgical intervention at this time. Plastic consult obtained given her concern of malocclusion. He performed bedside suture repair as well. COVID-19 test is positive which is consistent with her presentation. Patient is offered admission given her persistent dizziness, hypotension upon arrival, positive COVID-19 and ankle fracture. Patient if she was agreeable however she then changed her mind and felt that she be more comfortable at home. Given that she has been hemodynamically stable does not have any increased O2 requirements and feels comfortable going home with the care of her family I think this is reasonable. She is encouraged to return to emergency room if she gets home and either cannot control her pain, has further syncopal episodes or feels like she is doing worse. I suspect her syncope was a mixture of likely volume depletion and her COVID-19 infection. No arrhythmia seen on telemetry and normal troponin. Lab Data Attestation: I reviewed the patient's lab results. Labs: Laboratory Results - last 24 hr 05/01/24 05/01/24 05/01/24 07:28 07:41 08:25 WBC 6.2 RBC 4.52 Hgb 12.9 Hct 40.3 MCV 89.2 MCH 28.5 MCHC 32.0 RDW Std Deviation 39.8 RDW Coeff of Bravo 12.1 Plt Count 162 MPV 9.6 Immature Gran % (Auto) 0.300 Neut % (Auto) 82.5 H Lymph % (Auto) 8.6 L [place] % (Auto) 7.8 Eos % (Auto) 0.5 Baso % (Auto) 0.3 Absolute Neuts (auto) 5.1 Absolute Lymphs (auto) 0.53 L Nucleated RBC % 0 D-Dimer Quant (PE/DVT) 0.59 H* Sodium 143 Potassium 3.6 Chloride 113 H Carbon Dioxide 26.0 Anion Gap 4 L BUN 15 Creatinine 1.14 H Estim Creat Clear Calc 48.15 Est GFR (MDRD) Af Amer 63 Est GFR (MDRD) Non-Af 52 L BUN/Creatinine Ratio 13.2 Glucose 134 H Calcium 8.8 Total Bilirubin 0.30 AST 36 ALT 31 Alkaline Phosphatase 42 L Troponin I High Sens 4 Total Protein 6.3 L Albumin 3.3 Globulin 3.0 Albumin/Globulin Ratio 1.1 Urine Color Yellow Urine Clarity Clear Urine pH 7.0 Ur Specific Thomas 1.010 Urine Protein 15 H Urine Glucose (UA) Normal Urine Ketones Negative Urine Occult Blood 10 H Urine Nitrite Negative Urine Bilirubin Negative Urine Urobilinogen Normal Ur Leukocyte Esterase Negative Urine RBC 0 SEEN Urine WBC 0 SEEN Ur Squamous Epith Cells 0 SEEN Amorphous Sediment 1+ Urine Bacteria 0 SEEN Urine Mucus 0 SEEN POC Glucose 99 Radiography Diagnostic Testing: Clinical Impression(s) from Imaging Studies Brain CT 05/01/24 07:30 IMPRESSION: No acute intracranial finding. Electronically Signed: Wilner Isaacs MD at 8:15 EDT , Facial/Sinus 05/01/24 07:30 IMPRESSION: No acute maxillofacial fracture. 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 Electronically Signed: Wilner Isaacs MD at 8:19 EDT , Ankle X-Ray 05/01/24 08:00 IMPRESSION: Acute fracture of the distal fibula at the level of the ankle mortise with overlying soft tissue swelling. Electronically Signed: Wilner Isaacs MD at 8:21 EDT , Chest X-Ray 05/01/24 08:00 IMPRESSION: No acute pulmonary finding. Electronically Signed: Wilner Isaacs MD at 8:20 EDT , Chest CTA 05/01/24 08:48 IMPRESSION: No pulmonary embolism or other acute intrathoracic abnormality. Electronically Signed: Wilner Isaacs MD at 10:48 EDT , Rhythm Strip Rhythm Strip: Sinus Rhythm Rate: 73 Ectopy: None EKG Initial EKG: Attestation: I personally reviewed and interpreted this EKG as follows: Interpretation: Sinus Rhythm Comments: Normal sinus rhythm rate of 73 bpm Normal axis Normal intervals Normal ST segments Discharge Plan Triage Chief Complaint: Syncope Other Complaint: Laceration ED Provider: Valeria Santos Dx/Rx/DC Orders Clinical Impression: COVID-19, Lip laceration, Syncope, Fractured tooth, Closed fracture of distal end of right fibula Instructions: Coronavirus Disease 2019 (COVID-19): Caring for Yourself or Others, ED Laceration, Lip or Mouth, ED Fainting, Uncertain Cause, ED Ankle Fracture, Distal Fibula, ED Walker Boot Prescriptions: New oxycodone 5 mg tablet 5 mg PO Q6H PRN (Reason: pain) 3 Days Qty: 12 0RF ondansetron 4 mg tablet,disintegrating 4 mg PO Q8H PRN PRN (Reason: Nausea) Qty: 10 0RF clindamycin HCl 150 mg capsule 300 mg PO Q8H 5 Days Qty: 30 0RF Paxlovid 300 mg (150 mg x 2)-100 mg tablets,dose pack See Rx Instructions .ROUTE .COMPLEX Qty: 30 0RF Rx Instructions: take TWO 150 mg tablets of nirmatrelvir with ONE 100 mg tablet of ritonavir twice daily for 5 days chlorhexidine gluconate [Periogard] 0.12 % mouthwash 15 ml buccal TID 5 Days Qty: 118 0RF No Action nifedipine 30 MG tablet 30 mg PO DAILY aspirin 81 MG tablet,chewable 81 mg PO DAILY@0800 coenzyme Q10 [Co Q-10] 200 MG capsule 400 mg PO DAILY biotin 1,000 MCG tablet,chewable 1,000 mcg PO DAILY magnesium oxide 400 MG tablet 400 mg PO DAILY naproxen 500 mg tablet 500 mg PO BID Qty: 14 0RF tamoxifen 20 mg tablet 20 mg PO DAILY metformin 500 mg tablet 500 mg PO BID topiramate 50 mg tablet 50 mg PO DAILY dextroamphetamine-amphetamine [Adderall XR] 25 mg capsule,extended release 24hr 25 mg PO DAILY gabapentin 100 mg capsule 100 mg PO DAILY Primary Care Provider: Yaakov Tao Referrals: Yaakov Tao DO [Primary Care Provider] - Dmitriy Alonso DPM [Med Staff - Active Staff] - Davis Rodriguez MD [Med Staff - Active Staff] - 1 Week Activity Restrictions/Additional Instructions: Put as little weight as possible on your right ankle. Use walker to help with ambulation and wear the boots is much as possible. You may take it off for showers. Follow-up with Dr. Rodriguez for your lip, sutures to be removed in 1 week. Follow-up with your dentist for your teeth. You been given referral for banjo repair person to follow-up for your ankle. If you feel like you are getting worse, have trouble breathing or have further syncopal episodes please return to the emergency room. Print Language: Norwegian Disposition Disposition: Home, Self Care Discharge Date/Time: 05/01/24 14:05
[2024-05-01 07:46] LABS: Bedside Glucose 99 mg/dL (74-106)
[2024-05-01] MEDS: 0.9% Normal Saline (1000mL) 1,000 ML 1000 ML IV (07:46)
[2024-05-01 07:54] LABS: Absolute Lymphocyte Count 0.53 X10^3/uL (0.83-4.51); Absolute Neutrophil Count 5.1 X10^3/uL (2.0-7.7); Basophil# 0.02 X10^3/uL; Basophil% 0.3 % (0-1); Eosinophil# 0.03 X10^3/uL; Eosinophils% 0.5 % (0-5); Hematocrit 40.3 % (37-47); Hemoglobin 12.9 g/dL (12.0-15.0); Lymphocyte # 0.53 X10^3/ul (0.83-4.51); Lymphocyte % 8.6 % (19-41); Mean Corpuscular Hgb 28.5 pg (27.0-32.0); Mean Corpuscular Volume 89.2 fL (81-99); Mean Platelet Vol. 9.6 fl (6.2-12.0); Monocyte# 0.48 X10^3/uL; Monocyte% 7.8 % (0-10); NRBC Flagged by Analyzer 0 % (0-5); Neutrophil # 5.08 X10^3/uL (2.7-7.7); Neutrophil % 82.5 % (47-70); POSITIVE DIFFERENTIAL YES; Platelet Count 162 K/mm3 (150-450); RBC Distribution Width CV 12.1 % (11.6-14.6); RBC Distribution Width SD 39.8 fl (35.1-43.9); Red Blood Count 4.52 M/mm3 (4.2-5.4); White Blood Count 6.2 K/mm3 (4.4-11.0)
--- NOTE | 2024-05-01 08:00 | RAD_ITS ---
INDICATION: syncope EXAMINATION/TECHNIQUE: X-RAY - XR Chest 1 View COMPARISON: Prior study dated: 02/13/2018 FINDINGS: LINES/DEVICES: None. LUNGS: The lungs are well expanded. No consolidation, edema or effusion. No pneumothorax. MEDIASTINUM AND CARDIOVASCULAR STRUCTURES: Cardiac silhouette not enlarged. Central airways and mediastinal contour are unremarkable. BONES AND SOFT TISSUES: No acute abnormality. RAD/Chest 1 View (Portable) IMPRESSION: No acute pulmonary finding. Electronically Signed: Wilner Isaacs MD at 8:20 EDT ,
--- NOTE | 2024-05-01 08:00 | RAD_ITS ---
INDICATION: trauma EXAMINATION/TECHNIQUE: X-RAY - RIGHT XR Ankle Min 3 Views 3 VIEWS COMPARISON: No relevant prior comparison study available FINDINGS: SOFT TISSUES: Lateral soft tissue swelling. No radiopaque foreign body. BONES/JOINTS: There is an oblique fracture of the distal fibula at the level of the ankle mortise. Lateral displacement of the distal fragment by 0.4 cm.. Slight medial widening of the clear of the ankle mortise. No sclerotic or destructive changes observed. RAD/Ankle min 3 Views IMPRESSION: Acute fracture of the distal fibula at the level of the ankle mortise with overlying soft tissue swelling. Electronically Signed: Wilner Isaacs MD at 8:21 EDT ,
[2024-05-01 08:08] LABS: ALB/GLOB Ratio 1.1 RATIO (0.9-2.4); AST(SGOT) 36 U/L (15-37); Alanine Aminotransfer ALT/SGPT 31 U/L (13-56); Albumin, Serum 3.3 g/dL (3.2-5.0); Alkaline Phosphatase 42 U/L (45-117); Anion Gap 4 (5-15); BUN 15 mg/dL (7-18); BUN/Creat Ratio 13.2 RATIO (10-20); Calcium,Total 8.8 mg/dL (8.5-10.1); Chloride 113 mmol/L (98-107); Creatinine, Serum 1.14 mg/dL (0.55-1.02); EST Glomerular Filtration Rate 52 mL/min (>60); Est Glom Filt Rate - Afr Amer 63 mL/min (>60); Estimated Creatinine Clearance 48.15 ml/min; Glucose 134 mg/dL (74-106); Potassium 3.6 mmol/L (3.5-5.1); Protein, Total 6.3 g/dL (6.4-8.2); Sodium Level 143 mmol/L (136-145); Troponin-I HS 4 pg/mL (3.0-54.0)
[2024-05-01] MEDS: Lidocaine/Epi/Tetracaine 50 ML 1 APPLIC TOPICAL (08:19)
[2024-05-01 08:33] LABS: Bacteria 0 SEEN /hpf (None Seen); Mucous, Urine 0 SEEN /hpf (<or=2+); Red Blood Cells-Urine 0 SEEN /hpf (0-5); Squamous Epithelial Cells - UA 0 SEEN /hpf (5-10); White Blood Cells 0 SEEN /hpf (0-5)
--- NOTE | 2024-05-01 08:35 | EX.PCM.CON.S ---
Assessment & Plan Assessment/Plan (1) Lip laceration: PLAN: Laceration was repaired in the emergency department by me, please see separate operative dictation I talked her extensively about her bite and how she will need to follow-up with a dentist. There are no fractures on my review of the CT scan. Agree with Peridex mouthwash for 5 days 3 times daily Agree with clindamycin or Augmentin for 5 days for prophylaxis I will remove the stitches in 1 week Her tetanus was updated today in the emergency department HPI Consult Data Date of Consult: 05/01/24 PCP / Referring MD: Nat Smith is a 53-year-old female who unfortunately had a syncopal episode this morning in her yard and fell against a curb. The fall was witnessed by her son and they immediately transported her to the emergency department. Upon evaluation in the emergency department she was diagnosed with dehydration secondary to viral illness (tested positive for COVID). She is being worked up for a blood clot as well. In the emergency department, feels like her bite is abnormal but feels like her teeth moved and were kicked in when she had the curb. She also feels like it might be chipped. On CT face there was no acute fracture read by the radiologist (I also reviewed the CT scan and I did not see any acute fractures the maxilla or mandible which would contribute to any sort of malocclusion symptoms). She is not a smoker She has a history of breast cancer and breast reconstruction. HPI Narrative Reason for Consultation: Lip laceration after syncopal episode. [facility] Medical History Breast cancer Home Medications ?Medication ?Instructions ?Recorded ?Last Taken ?Type aspirin 81 mg chewable tablet 81 mg PO DAILY@0800 10/30/15 Unknown History nifedipine 30 mg tablet,extended 30 mg PO DAILY 10/30/15 Unknown History release 24 hr biotin 1,000 mcg chewable tablet 1,000 mcg PO DAILY 02/13/18 Unknown History coenzyme Q10 200 mg capsule (Co 400 mg PO DAILY 02/13/18 Unknown History Q-10) magnesium oxide 400 mg PO DAILY 02/13/18 Unknown History naproxen 500 mg tablet 500 mg PO BID #14 tabs 07/19/23 Unknown Rx tamoxifen 20 mg tablet 20 mg PO DAILY 07/21/23 Unknown History dextroamphetamine-amphetamine ER 25 mg PO DAILY 05/01/24 Unknown History 25 mg 24hr capsule,extend release (Adderall XR) gabapentin 100 mg capsule 100 mg PO DAILY 05/01/24 Unknown History metformin 500 mg tablet 500 mg PO BID 05/01/24 Unknown History topiramate 50 mg tablet 50 mg PO DAILY 05/01/24 Unknown History Allergy/AdvReac Type Severity Reaction Status Date / Time No Known Allergies Allergy Verified 05/01/24 07:21 Family History Father Heart disease Mother Emphysema lung Dementia Surgical History H/O: hysterectomy H/O foot surgery H/O lumpectomy Social History household members: spouse Smoking Status: Never smoker substance use type: does not use Physical Exam Narrative Lower lip with a through and through laceration from the lower teeth on the keratinized lower lip through the buccal lower lip, measures 3 cm. There is also a separate 3 cm laceration in the gingivobuccal sulcus of the lower lip with exposed periosteum of the bone and a small cuff of gingival tissue beneath the incisors. There appears to be a lingual cant of the upper and lower incisors, which she reports is new. The teeth are not loose at this time, there appears to be some chipped portions of the incisors. She does not have any premature contact of the molars, and they appear to be coming together well in class I occlusion. Sensation to light touch intact on all three V5 distributions. Cranial nerve VII working bilateral. Extraocular movements intact. Pupils equal and reactive. Const alert and oriented x3 Lab / Micro Data 05/01/24 07:41 05/01/24 07:41 Labs: Laboratory Results - last 24 hr 05/01/24 07:28: POC Glucose 99 05/01/24 07:41: WBC 6.2, RBC 4.52, Hgb 12.9, Hct 40.3, MCV 89.2, MCH 28.5, MCHC 32.0, RDW Std Deviation 39.8, RDW Coeff of Bravo 12.1, Plt Count 162, MPV 9.6, Immature Gran % (Auto) 0.300, Neut % (Auto) 82.5 H, Lymph % (Auto) 8.6 L, [place] % (Auto) 7.8, Eos % (Auto) 0.5, Baso % (Auto) 0.3, Absolute Neuts (auto) 5.1, Absolute Lymphs (auto) 0.53 L, Nucleated RBC % 0, Sodium 143, Potassium 3.6, Chloride 113 H, Carbon Dioxide 26.0, Anion Gap 4 L, BUN 15, Creatinine 1.14 H, Estim Creat Clear Calc 48.15, Est GFR (MDRD) Af Amer 63, Est GFR (MDRD) Non-Af 52 L, BUN/Creatinine Ratio 13.2, Glucose 134 H, Calcium 8.8, Total Bilirubin 0.30, AST 36, ALT 31, Alkaline Phosphatase 42 L, Troponin I High Sens 4, Total Protein 6.3 L, Albumin 3.3, Globulin 3.0, Albumin/Globulin Ratio 1.1 Imaging Radiology Impression Brain CT 05/01/24 07:30 IMPRESSION: No acute intracranial finding. Electronically Signed: Wilner Isaacs MD at 8:15 EDT Reading Location ID and State: [facility] / [place] Tel , Service support , Facial/Sinus 05/01/24 07:30 IMPRESSION: No acute maxillofacial fracture. 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 Electronically Signed: Wilner Isaacs MD at 8:19 EDT , Ankle X-Ray 05/01/24 08:00 IMPRESSION: Acute fracture of the distal fibula at the level of the ankle mortise with overlying soft tissue swelling. Electronically Signed: Wilner Isaacs MD at 8:21 EDT , Chest X-Ray 05/01/24 08:00 IMPRESSION: No acute pulmonary finding. Electronically Signed: Wilner Isaacs MD at 8:20 EDT , Charges/Coding Visit Charges Office Visits / Consults: 23597 OV L5 Est 40min
[2024-05-01 08:38] LABS: Color, Urine Yellow (Yellow); Glucose, Dipstick Normal (Normal); Ketone-Dipstick Negative (Negative); Leukocyte Esterase-Dipstick Negative /ul (Negative); Nitrite-Dipstick Negative (Negative); Occult Blood-Urine 10 /ul (Negative); Protein-Dipstick 15 mg/dl (Negative); Urine Bilirubin Dipstick Negative (Negative); Urine Clarity Clear (Clear); Urine Urobilinogen Normal (Normal)
[2024-05-01 08:41] LABS: D-Dimer Quantitative (DVT/PE) 0.59 FEU/ug/m (0.27-0.49)
--- NOTE | 2024-05-01 08:48 | CT_ITS ---
STUDY: CTA CHEST REASON FOR EXAM: Female, 53 years old. syncope, elevateddimer, PE concern RADIATION DOSAGE (If Supplied By Facility): CTDIvol = ( 6.09 ) mGy, DLP = ( 155.62 ) mGycm TECHNIQUE: The examination was performed with the intravenous administration of IV 100mL Isovue-370. Post-processing of the angiographic images was performed, with multiplanar reformation and 3D reconstruction. Individualized dose optimization techniques were used for this CT. COMPARISON: No relevant prior comparison study available FINDINGS: PULMONARY ARTERIES: Normal enhancement of the main pulmonary artery and right and left pulmonary arteries. Normal enhancement of the bilateral peripheral pulmonary arteries. There is no demonstrated pulmonary embolism. AORTA: Normal thoracic aorta and visualized great vessels. There is no demonstrated aortic dissection. MEDIASTINUM: Normal heart and pericardium. Normal mediastinum. Normal hilar regions. LUNGS/PLEURA: Normal visualized trachea and bronchi. The lungs are well expanded. Normal pulmonary parenchyma. Normal pleura. No pneumothorax. CHEST WALL: Normal chest wall structures. UPPER ABDOMEN: Normal visualized upper abdomen. OSSEOUS STRUCTURES: No acute or suspicious osseous abnormality. CT/CTA Chest W/WO Contrast IMPRESSION: No pulmonary embolism or other acute intrathoracic abnormality. Electronically Signed: Wilner Isaacs MD at 10:48 EDT ,
[2024-05-01 08:51] LABS: Amorphous Sediment 1+
[2024-05-01] MEDS: fentaNYL 100 MCG/2 ML Ampul 50 MCG IV (09:29)
[2024-05-01] MEDS: Diphth,Pertuss(Acell),Tet Vac 0.5 ML Vial IM (10:34)
[2024-05-01] MEDS: oxyCODONE 5 MG Tablet PO (12:03)
[2024-05-01] MEDS: Acetaminophen 325 MG Tablet 650 MG PO (12:03)
--- NOTE | 2024-05-01 13:23 | PCM.OP.BLANK ---
Operative Report Date of Procedure: 05/01/24 Surgery/Procedure Date: 01 May 2024 Incision/Procedure Start Time: 9:30 AM Incision Close/Procedure End Time: 10 AM PATIENT: Nat Meyer PRE-OPERATIVE DIAGNOSIS: Lower lip laceration POST-OPERATIVE DIAGNOSIS: Same PROCEDURE PERFORMED: 1) irrigation washout of lower lip lacerations 2) repair of 2 separate lower lip lacerations, 6 cm total, intermediate repair (CPT 42876) INDICATIONS: Patient has a lower lip laceration from a fall this morning. Discussed risks and benefits of closure and she agreed to proceed. Consent was obtained. OPERATIVE DETAILS: Patient was prepped and draped in sterile fashion and 10 cc of lidocaine with epinephrine was used for local. He was given time to take effect. The wounds were irrigated with copious amounts normal saline. 4-0 Vicryl deep suture was placed in the orbicularis muscle to approximate the muscle with interrupted sutures. The buccal side of the through and through lip laceration was repaired with 4-0 Vicryl interrupted suture, and the cutaneous lip was repaired with 6-0 nylon interrupted sutures. This was a 3 cm intermediate repair. The gingivobuccal sulcus laceration was irrigated with copious amounts normal saline as well and was repaired with 4-0 Vicryl interrupted sutures. This was a 3 cm intermediate repair. There were no foreign bodies found in either wounds. Patient tolerated the procedure well EBL: Minimal POST-OPERATIVE PLAN: Follow-up in 1 week for suture removal. Peridex mouthwash 3 times per day for 5 days. Continue antibiotics for 5 days as well.
== END 2024-05-01 14:05 | disposition home or self-care (01) ==
LOC: ED 08:22 → PCU 13:25 → ED 13:44
PROVIDERS: Emergency Medicine; Emergency Provider Family Medicine; PCP Student in an Organized Health Care Education/Training Program; Visit Provider Family Medicine
DX: S01.511A Laceration without foreign body of lip, initial encounter (principal); S02.5XXA Fracture of tooth (traumatic), initial encounter for closed fracture; S82.431A Displaced oblique fracture of shaft of right fibula, initial encounter for closed fracture; W18.39XA Other fall on same level, initial encounter; Y92.007 Garden or yard of unspecified non-institutional (private) residence as the place of occurrence of the external cause; R55 Syncope and collapse; U07.1 COVID-19; Z79.82 Long term (current) use of aspirin
CPT/HCPCS: 12053; 70450; 70486; 71045; 71275; 73610; 80053; 81001; 82962; 84484; 85025; 85379; 87631; 90715; 93005; 96361; 96374; 99285; J7030; Q9967; A4216

== ENCOUNTER 2024-05-05 17:42 | Emergency (ER) | payer BC, SELFPAY ==
[2024-05-05 17:43] VITALS: BP 101/67; PULSE 91; RESP 17; TEMP 36.4; O2SAT 100; BMI 22.2
== END 2024-05-05 19:01 | disposition left against medical advice (07) ==
LOC: ED 19:13
PROVIDERS: PCP Student in an Organized Health Care Education/Training Program
DX: Z53.21 Procedure and treatment not carried out due to patient leaving prior to being seen by health care provider (principal)